=== PATIENT | female | born 1970 | race Caucasian/White ===

== ENCOUNTER → 2016-12-01 | Outpatient (CLI) | payer OTHER ==
[~2016-12-01] MED LIST: ADIPEX-P37.5 MG PO; B-12 100 MCG PO; BACTRIM DS 8001 TAB PO; BIOTIN PO; BUSPAR DIVIDOSE15 MG PO; BUSPAR10 MG PO; CALCIUM 600MG+D1 TAB PO; CEPHALEXIN250 M1 PO; CIPRO 250MG TA250 MG PO; COLACE 100100 MG/CAP PO; CRANBERRY1 CAP PO; DEPO-PROVER150 MG/M1 IM; DESYREL 100MG100 MG PO; EFFEXOR-XR150 MG PO; FASTIN30 MG PO; FLEXERIL 1010 MG/TAB PO; FLEXERIL10 MG PO; FORTAMET500 MG PO; GLUCOPHAGE XR500 M1 PO; GLUCOPHAGE500 MG/TAB PO; HEALTH CARE AME1 SGL PO; JANUMET 500 MG-1 TA1; KLONOPIN 0.5MG0.5 MG PO; LAMICTAL200 MG PO; LANTUS100 U/ML SC; LEVAQUIN 750MG750 M1 PO; LORTAB 5/500 501 TAB PO; MOBIC 7.5MG7.5 MG PO; NO HOME MEDICATIONS; NORCO 325 MG-51 TAB PO; NOVOLOG 100U100 U/M1 SC; ONE DAILY WOMEN1 TAB PO; PHENTERMINE15 MG PO; PRILOSEC 20MG20 MG PO; RESTORIL 1515 MG/CAP PO; TOPAMAX 25MG25 M1 PO; ULTRAM 50MG TAB50 MG PO; VENLAFAXINE225 MG PO; ZOFRAN8 MG PO
== END ==
LOC: BHSO 15:13
DX: F31.81 Bipolar II disorder (principal)

== ENCOUNTER → 2016-12-05 | Outpatient (CLI) | payer OTHER | LOC: BHSO 08:55 | DX: F31.81 Bipolar II disorder (principal) ==

== ENCOUNTER → 2016-12-11 | Outpatient (CLI) | payer BC ==
[~2016-12-11] VITALS: Ht 154.9 cm; Wt 83.5 kg
[2016-12-11 14:47] VITALS: BP 130/70; PULSE 80
[2016-12-11 15:04] VITALS: BP 130/70; PULSE 80
== END ==
LOC: LIGHT 11:26
DX: E11.9 Type 2 diabetes mellitus without complications (principal); F33.8 Other recurrent depressive disorders; E66.09 Other obesity due to excess calories; Z68.34 Body mass index [BMI] 34.0-34.9, adult; F41.8 Other specified anxiety disorders

== ENCOUNTER → 2016-12-19 | Outpatient (CLI) | payer OTHER | LOC: BHSO 08:51 | DX: F31.81 Bipolar II disorder (principal) ==

== ENCOUNTER → 2017-01-02 | Outpatient (CLI) | payer OTHER | LOC: BHSO 09:01 | DX: F31.81 Bipolar II disorder (principal) ==

== ENCOUNTER → 2017-01-15 | Outpatient (CLI) | payer OTHER ==
[~2017-01-15] VITALS: Ht 154.9 cm; Wt 83.0 kg
[2017-01-15 14:59] VITALS: BP 134/79; PULSE 86
[2017-01-15 15:21] VITALS: BP 134/79; PULSE 86
== END ==
LOC: LIGHT 12:52
DX: E11.9 Type 2 diabetes mellitus without complications (principal); F33.8 Other recurrent depressive disorders; E66.09 Other obesity due to excess calories; Z68.34 Body mass index [BMI] 34.0-34.9, adult

== ENCOUNTER → 2017-01-23 | Outpatient (CLI) | payer OTHER | LOC: BHSO 08:57 | DX: F31.81 Bipolar II disorder (principal) ==

== ENCOUNTER → 2017-02-04 | Outpatient (CLI) | payer OTHER | LOC: BHSO 14:58 | DX: F33.1 Major depressive disorder, recurrent, moderate (principal) ==

== ENCOUNTER → 2017-02-06 | Outpatient (CLI) | payer OTHER | LOC: BHSO 09:03 | DX: F31.31 Bipolar disorder, current episode depressed, mild (principal) ==

== ENCOUNTER → 2017-02-20 | Outpatient (CLI) | payer OTHER | LOC: BHSO 08:57 | DX: F31.11 Bipolar disorder, current episode manic without psychotic features, mild (principal) ==

== ENCOUNTER → 2017-03-06 | Outpatient (CLI) | payer OTHER | LOC: BHSO 08:58 | DX: F31.81 Bipolar II disorder (principal) ==

== ENCOUNTER → 2017-04-03 | Outpatient (CLI) | payer OTHER | LOC: BHSO 14:04 | DX: F31.81 Bipolar II disorder (principal) ==

== ENCOUNTER → 2017-04-16 | Outpatient (CLI) | payer OTHER | LOC: BHSO 14:51 | DX: F31.81 Bipolar II disorder (principal) ==

== ENCOUNTER 2017-04-21 11:27 | Emergency (ER) | payer OTHER ==
[~2017-04-21] VITALS: Ht 154.9 cm; Wt 82.7 kg
[~2017-04-21 11:27] MED LIST changes: -CALCIUM 600MG+D1 TAB PO
[2017-04-21 11:35] VITALS: BP 128/90; TEMP 98
[2017-04-21 13:00] VITALS: PULSE 90
== END 2017-04-21 13:01 | disposition home or self-care (01) ==
LOC: COL.ER 11:27
DX: S60.221A Contusion of right hand, initial encounter (principal); F32.9 Major depressive disorder, single episode, unspecified; F41.9 Anxiety disorder, unspecified; E11.9 Type 2 diabetes mellitus without complications; Z79.84 Long term (current) use of oral hypoglycemic drugs; Z79.4 Long term (current) use of insulin; Z87.39 Personal history of other diseases of the musculoskeletal system and connective tissue; Z98.890 Other specified postprocedural states; W22.8XXA Striking against or struck by other objects, initial encounter; Y92.89 Other specified places as the place of occurrence of the external cause

== ENCOUNTER → 2017-05-06 | Outpatient (CLI) | payer OTHER ==
[~2017-05-06] MED LIST changes: +CALCIUM 600MG+D1 TAB PO
== END ==
LOC: BHSO 14:32
DX: F31.81 Bipolar II disorder (principal)

== ENCOUNTER → 2017-05-08 | Outpatient (CLI) | payer OTHER | LOC: BHSO 09:57 | DX: F31.81 Bipolar II disorder (principal) ==

== ENCOUNTER 2017-05-20 13:42 | Outpatient (RCR) | payer OTHER ==
[~2017-05-20 13:42] MED LIST changes: -CALCIUM 600MG+D1 TAB PO; +EFFEXOR 75M75 MG/TAB PO
[2017-05-28] MEDS ORDERED: CALCIUM 600MG+D1 TAB PO (15:26)
[2017-05-28] MEDS ORDERED: TOPAMAX 25MG25 M1 PO (17:32)
== END 2017-08-18 | disposition still patient (30) ==
LOC: WSOH
DX: S60.221A Contusion of right hand, initial encounter (principal); R22.31 Localized swelling, mass and lump, right upper limb; R20.0 Anesthesia of skin; W20.8XXA Other cause of strike by thrown, projected or falling object, initial encounter; Y92.090 Kitchen in other non-institutional residence as the place of occurrence of the external cause; Y99.0 Civilian activity done for income or pay; Z98.84 Bariatric surgery status; Z90.49 Acquired absence of other specified parts of digestive tract

== ENCOUNTER → 2017-05-28 | Outpatient (CLI) | payer OTHER ==
[~2017-05-28] VITALS: Ht 154.9 cm; Wt 87.3 kg
[~2017-05-28] MED LIST changes: +CALCIUM 600MG+D1 TAB PO; -EFFEXOR 75M75 MG/TAB PO
[2017-05-28 15:27] VITALS: BP 133/78; PULSE 82
== END ==
LOC: LIGHT
DX: E11.9 Type 2 diabetes mellitus without complications (principal); F32.9 Major depressive disorder, single episode, unspecified; E66.9 Obesity, unspecified; Z68.36 Body mass index [BMI] 36.0-36.9, adult; Z71.3 Dietary counseling and surveillance; F41.9 Anxiety disorder, unspecified

== ENCOUNTER → 2017-05-29 | Outpatient (CLI) | payer OTHER | LOC: BHSO 09:57 | DX: F31.32 Bipolar disorder, current episode depressed, moderate (principal) ==

== ENCOUNTER → 2017-06-12 | Outpatient (CLI) | payer OTHER | LOC: BHSO 09:51 | DX: F31.81 Bipolar II disorder (principal) ==

== ENCOUNTER → 2017-07-03 | Outpatient (CLI) | payer OTHER | LOC: BHSO 08:59 | DX: F31.81 Bipolar II disorder (principal) ==

== ENCOUNTER → 2017-07-16 | Outpatient (CLI) | payer OTHER ==
[~2017-07-16] VITALS: Ht 154.9 cm; Wt 85.7 kg
[2017-07-16 15:44] VITALS: BP 132/92; PULSE 80
== END ==
LOC: LIGHT 10:39
DX: E11.9 Type 2 diabetes mellitus without complications (principal); F32.9 Major depressive disorder, single episode, unspecified; E66.9 Obesity, unspecified; Z68.35 Body mass index [BMI] 35.0-35.9, adult; Z98.84 Bariatric surgery status; Z90.3 Acquired absence of stomach [part of]

== ENCOUNTER → 2017-07-17 | Outpatient (CLI) | payer OTHER | LOC: BHSO 08:55 | DX: F31.31 Bipolar disorder, current episode depressed, mild (principal) ==

== ENCOUNTER → 2017-07-31 | Outpatient (CLI) | payer OTHER | LOC: BHSO 09:05 | DX: F31.31 Bipolar disorder, current episode depressed, mild (principal) ==

== ENCOUNTER → 2017-08-04 | Outpatient (CLI) | payer OTHER | LOC: BHSO 14:38 | DX: F41.0 Panic disorder [episodic paroxysmal anxiety] (principal) ==

== ENCOUNTER → 2017-08-14 | Outpatient (CLI) | payer OTHER | LOC: BHSO 10:02 | DX: F31.31 Bipolar disorder, current episode depressed, mild (principal) ==

== ENCOUNTER → 2017-08-27 | Outpatient (CLI) | payer OTHER ==
[~2017-08-27] VITALS: Ht 154.9 cm; Wt 86.6 kg
[~2017-08-27] MED LIST changes: +EFFEXOR 75M75 MG/TAB PO
[2017-08-27 14:50] VITALS: BP 122/70; PULSE 100
== END ==
LOC: LIGHT 11:33
DX: E11.9 Type 2 diabetes mellitus without complications (principal); F32.9 Major depressive disorder, single episode, unspecified; E66.9 Obesity, unspecified; Z68.36 Body mass index [BMI] 36.0-36.9, adult; Z71.3 Dietary counseling and surveillance; F41.9 Anxiety disorder, unspecified

== ENCOUNTER → 2017-08-28 | Outpatient (CLI) | payer OTHER | LOC: BHSO 08:57 | DX: F31.81 Bipolar II disorder (principal) ==

== ENCOUNTER → 2017-09-11 | Outpatient (CLI) | payer OTHER | LOC: BHSO 09:00 | DX: F31.81 Bipolar II disorder (principal) ==

== ENCOUNTER → 2017-09-24 | Outpatient (CLI) | payer OTHER ==
[~2017-09-24] VITALS: Ht 154.9 cm; Wt 88.9 kg
[~2017-09-24] MED LIST changes: +CONTRAVE1 TER PO
[2017-09-24 14:47] VITALS: BP 140/80; PULSE 104
== END ==
LOC: LIGHT 11:11
DX: E11.9 Type 2 diabetes mellitus without complications (principal); F32.9 Major depressive disorder, single episode, unspecified; E66.9 Obesity, unspecified; Z68.37 Body mass index [BMI] 37.0-37.9, adult; Z71.3 Dietary counseling and surveillance; F41.9 Anxiety disorder, unspecified

== ENCOUNTER → 2017-10-01 | Outpatient (CLI) | payer OTHER | LOC: BHSO 14:38 | DX: F41.1 Generalized anxiety disorder (principal) ==

== ENCOUNTER → 2017-10-05 | Outpatient (CLI) | payer OTHER ==
[~2017-10-05] VITALS: Ht 154.9 cm; Wt 89.4 kg
[2017-10-05 14:49] VITALS: BP 136/84; PULSE 100
== END ==
LOC: LIGHT 08:22
DX: E11.9 Type 2 diabetes mellitus without complications (principal); F32.9 Major depressive disorder, single episode, unspecified; E66.9 Obesity, unspecified; Z68.37 Body mass index [BMI] 37.0-37.9, adult; Z71.3 Dietary counseling and surveillance; F41.9 Anxiety disorder, unspecified

== ENCOUNTER → 2017-10-09 | Outpatient (CLI) | payer OTHER | LOC: BHSO 08:42 | DX: F31.81 Bipolar II disorder (principal) ==

== ENCOUNTER → 2017-10-22 | Outpatient (CLI) | payer OTHER ==
[~2017-10-22] VITALS: Ht 154.9 cm; Wt 87.8 kg
[2017-10-22 14:46] VITALS: BP 120/80; PULSE 80
== END ==
LOC: LIGHT 11:10
DX: E11.9 Type 2 diabetes mellitus without complications (principal); F32.9 Major depressive disorder, single episode, unspecified; E66.9 Obesity, unspecified; Z68.36 Body mass index [BMI] 36.0-36.9, adult; Z71.3 Dietary counseling and surveillance; F41.9 Anxiety disorder, unspecified

== ENCOUNTER → 2017-10-23 | Outpatient (CLI) | payer OTHER | LOC: BHSO 08:50 | DX: F31.81 Bipolar II disorder (principal) ==

== ENCOUNTER → 2017-11-19 | Outpatient (CLI) | payer OTHER ==
[~2017-11-19] VITALS: Ht 154.9 cm; Wt 86.0 kg
[2017-11-19 14:42] VITALS: BP 124/76; PULSE 100
== END ==
LOC: LIGHT 12:35
DX: E11.9 Type 2 diabetes mellitus without complications (principal); F32.9 Major depressive disorder, single episode, unspecified; E66.9 Obesity, unspecified; Z68.35 Body mass index [BMI] 35.0-35.9, adult; Z71.3 Dietary counseling and surveillance; F41.9 Anxiety disorder, unspecified
CPT/HCPCS: G0463

== ENCOUNTER → 2017-12-04 | Outpatient (CLI) | payer OTHER | LOC: BHSO 09:54 | DX: F31.81 Bipolar II disorder (principal) ==

== ENCOUNTER → 2017-12-24 | Outpatient (CLI) | payer OTHER ==
[~2017-12-24] VITALS: Ht 154.9 cm; Wt 88.7 kg
[2017-12-24 15:04] VITALS: BP 140/84; PULSE 84
== END ==
LOC: LIGHT 09:13
DX: E11.9 Type 2 diabetes mellitus without complications (principal); F32.9 Major depressive disorder, single episode, unspecified; E66.9 Obesity, unspecified; Z68.36 Body mass index [BMI] 36.0-36.9, adult; Z71.3 Dietary counseling and surveillance; F41.9 Anxiety disorder, unspecified
CPT/HCPCS: G0463

== ENCOUNTER → 2018-01-08 | Outpatient (CLI) | payer OTHER | LOC: BHSO 08:55 | DX: F31.81 Bipolar II disorder (principal) ==

== ENCOUNTER → 2018-01-21 | Outpatient (CLI) | payer OTHER ==
[~2018-01-21] VITALS: Ht 154.9 cm; Wt 89.4 kg
[~2018-01-21] MED LIST changes: +LIPITOR20 MG PO
[2018-01-21 14:56] VITALS: BP 140/92; PULSE 68
== END ==
LOC: LIGHT 09:49
DX: E11.9 Type 2 diabetes mellitus without complications (principal); F32.9 Major depressive disorder, single episode, unspecified; E66.9 Obesity, unspecified; Z68.37 Body mass index [BMI] 37.0-37.9, adult; Z71.3 Dietary counseling and surveillance; F41.9 Anxiety disorder, unspecified
CPT/HCPCS: G0463

== ENCOUNTER → 2018-02-19 | Outpatient (CLI) | payer OTHER | LOC: BHSO 08:51 | DX: F31.81 Bipolar II disorder (principal) ==

== ENCOUNTER → 2018-02-25 | Outpatient (CLI) | payer OTHER ==
[~2018-02-25] VITALS: Ht 154.9 cm; Wt 89.1 kg
[2018-02-25 14:50] VITALS: BP 134/94; PULSE 80
== END ==
LOC: LIGHT 09:54
DX: E11.9 Type 2 diabetes mellitus without complications (principal); F32.9 Major depressive disorder, single episode, unspecified; E66.9 Obesity, unspecified; Z68.37 Body mass index [BMI] 37.0-37.9, adult; Z71.3 Dietary counseling and surveillance; F41.9 Anxiety disorder, unspecified
CPT/HCPCS: G0463

== ENCOUNTER → 2018-03-12 | Outpatient (CLI) | payer OTHER | LOC: BHSO 09:00 | DX: F31.81 Bipolar II disorder (principal) ==

== ENCOUNTER → 2018-04-02 | Outpatient (CLI) | payer OTHER | LOC: BHSO 08:59 | DX: F31.11 Bipolar disorder, current episode manic without psychotic features, mild (principal) ==

== ENCOUNTER → 2018-04-08 | Outpatient (CLI) | payer OTHER ==
[~2018-04-08] VITALS: Ht 154.9 cm; Wt 86.2 kg
[~2018-04-08] MED LIST changes: -GLUCOPHAGE XR500 M1 PO
[2018-04-08 15:06] VITALS: BP 136/82; PULSE 80
== END ==
LOC: LIGHT 14:41
DX: E11.9 Type 2 diabetes mellitus without complications (principal); F32.9 Major depressive disorder, single episode, unspecified; E66.9 Obesity, unspecified; Z68.35 Body mass index [BMI] 35.0-35.9, adult; Z71.3 Dietary counseling and surveillance; F41.9 Anxiety disorder, unspecified
CPT/HCPCS: G0463

== ENCOUNTER → 2018-04-12 | Outpatient (CLI) | payer OTHER | LOC: BHSO 14:37 | DX: F33.41 Major depressive disorder, recurrent, in partial remission (principal) | CPT/HCPCS: G0463 ==

== ENCOUNTER → 2018-05-20 | Outpatient (CLI) | payer OTHER ==
[~2018-05-20] VITALS: Ht 154.9 cm; Wt 85.5 kg
[2018-05-20 14:49] VITALS: BP 150/94; PULSE 92
== END ==
LOC: LIGHT 14:22
DX: E11.9 Type 2 diabetes mellitus without complications (principal); F32.9 Major depressive disorder, single episode, unspecified; E66.9 Obesity, unspecified; Z68.35 Body mass index [BMI] 35.0-35.9, adult; Z71.3 Dietary counseling and surveillance; F41.9 Anxiety disorder, unspecified
CPT/HCPCS: G0463

== ENCOUNTER → 2018-06-24 | Outpatient (CLI) | payer OTHER ==
[~2018-06-24] VITALS: Ht 154.9 cm; Wt 86.4 kg
[2018-06-24 14:48] VITALS: BP 140/90; PULSE 92
== END ==
LOC: LIGHT 13:29
DX: E11.9 Type 2 diabetes mellitus without complications (principal); F32.9 Major depressive disorder, single episode, unspecified; F41.9 Anxiety disorder, unspecified; E66.9 Obesity, unspecified; Z68.36 Body mass index [BMI] 36.0-36.9, adult; Z71.3 Dietary counseling and surveillance
CPT/HCPCS: G0463

== ENCOUNTER → 2018-07-22 | Outpatient (CLI) | payer OTHER ==
[~2018-07-22] VITALS: Ht 154.9 cm; Wt 87.1 kg
[2018-07-22 14:36] VITALS: BP 132/84; PULSE 80
== END ==
LOC: LIGHT 08:18
DX: E11.9 Type 2 diabetes mellitus without complications (principal); F32.9 Major depressive disorder, single episode, unspecified; F41.9 Anxiety disorder, unspecified; E66.9 Obesity, unspecified; Z68.36 Body mass index [BMI] 36.0-36.9, adult; Z71.3 Dietary counseling and surveillance
CPT/HCPCS: G0463

== ENCOUNTER → 2018-07-23 | Outpatient (CLI) | payer OTHER | LOC: BHSO 14:51 | DX: F31.81 Bipolar II disorder (principal) ==

== ENCOUNTER → 2018-08-17 | Outpatient (CLI) | payer OTHER | LOC: BHSO 13:52 | DX: F31.81 Bipolar II disorder (principal) ==

== ENCOUNTER → 2018-09-02 | Outpatient (CLI) | payer OTHER ==
[~2018-09-02] VITALS: Ht 154.9 cm; Wt 86.6 kg
[2018-09-02 14:54] VITALS: BP 126/80; PULSE 88
== END ==
LOC: LIGHT 11:34
DX: E11.9 Type 2 diabetes mellitus without complications (principal); F32.9 Major depressive disorder, single episode, unspecified; F41.1 Generalized anxiety disorder; E66.9 Obesity, unspecified; Z68.36 Body mass index [BMI] 36.0-36.9, adult; Z71.3 Dietary counseling and surveillance
CPT/HCPCS: G0463

== ENCOUNTER → 2018-09-03 | Outpatient (CLI) | payer OTHER | LOC: BHSO 12:55 | DX: F31.81 Bipolar II disorder (principal) ==

== ENCOUNTER → 2018-09-24 | Outpatient (CLI) | payer OTHER | LOC: BHSO 08:49 | DX: F31.11 Bipolar disorder, current episode manic without psychotic features, mild (principal) ==

== ENCOUNTER → 2018-10-04 | Outpatient (CLI) | payer OTHER | LOC: BHSO 14:38 | DX: F41.1 Generalized anxiety disorder (principal) | CPT/HCPCS: G0463 ==

== ENCOUNTER → 2018-10-08 | Outpatient (CLI) | payer OTHER | LOC: BHSO 09:56 | DX: F31.11 Bipolar disorder, current episode manic without psychotic features, mild (principal) ==

== ENCOUNTER → 2018-10-29 | Outpatient (CLI) | payer OTHER ==
[~2018-10-29] MED LIST changes: +DESVENLAFAXINE50 MG PO
== END ==
LOC: BHSO 09:00
DX: F31.11 Bipolar disorder, current episode manic without psychotic features, mild (principal)

== ENCOUNTER → 2018-11-12 | Outpatient (CLI) | payer OTHER | LOC: BHSO 08:40 | DX: F31.11 Bipolar disorder, current episode manic without psychotic features, mild (principal) ==

== ENCOUNTER → 2018-11-26 | Outpatient (CLI) | payer OTHER | LOC: BHSO 15:03 | DX: F31.11 Bipolar disorder, current episode manic without psychotic features, mild (principal) ==

== ENCOUNTER → 2018-12-10 | Outpatient (CLI) | payer OTHER | LOC: BHSO 13:58 | DX: F31.81 Bipolar II disorder (principal) ==

== ENCOUNTER → 2018-12-17 | Outpatient (CLI) | payer OTHER | LOC: BHSO 08:17 | DX: F33.1 Major depressive disorder, recurrent, moderate (principal) | CPT/HCPCS: G0463 ==

== ENCOUNTER → 2018-12-23 | Outpatient (CLI) | payer OTHER ==
[~2018-12-23] VITALS: Ht 154.9 cm; Wt 85.0 kg
[2018-12-23 15:40] VITALS: BP 130/70; PULSE 76
== END ==
LOC: LIGHT 11-18 10:28
DX: E11.9 Type 2 diabetes mellitus without complications (principal); F32.9 Major depressive disorder, single episode, unspecified; F41.9 Anxiety disorder, unspecified; Z68.35 Body mass index [BMI] 35.0-35.9, adult; E66.9 Obesity, unspecified; Z71.3 Dietary counseling and surveillance
CPT/HCPCS: G0463

== ENCOUNTER → 2018-12-31 | Outpatient (CLI) | payer OTHER | LOC: BHSO 14:54 | DX: F31.81 Bipolar II disorder (principal) ==

== ENCOUNTER → 2019-01-14 | Outpatient (CLI) | payer OTHER | LOC: BHSO 14:52 | DX: F31.81 Bipolar II disorder (principal) ==

== ENCOUNTER → 2019-01-21 | Outpatient (CLI) | payer OTHER | LOC: BHSO 12:16 | DX: F31.81 Bipolar II disorder (principal) | CPT/HCPCS: G0463 ==

== ENCOUNTER → 2019-02-18 | Outpatient (CLI) | payer OTHER | LOC: BHSO 08:48 | DX: F31.81 Bipolar II disorder (principal) ==

== ENCOUNTER → 2019-02-25 | Outpatient (CLI) | payer OTHER | LOC: BHSO 15:14 | DX: F31.11 Bipolar disorder, current episode manic without psychotic features, mild (principal) ==

== ENCOUNTER → 2019-03-11 | Outpatient (CLI) | payer OTHER | LOC: BHSO 08:59 | DX: F31.11 Bipolar disorder, current episode manic without psychotic features, mild (principal) ==

== ENCOUNTER → 2019-03-17 | Outpatient (CLI) | payer OTHER ==
[~2019-03-17] VITALS: Ht 154.9 cm; Wt 82.6 kg
[~2019-03-17] MED LIST changes: +LAMICTAL 100MG100 MG PO
[2019-03-17 15:50] VITALS: BP 124/86; PULSE 60
== END ==
LOC: LIGHT 01-27 11:14
DX: E11.65 Type 2 diabetes mellitus with hyperglycemia (principal); F32.9 Major depressive disorder, single episode, unspecified; F41.1 Generalized anxiety disorder; E66.9 Obesity, unspecified; Z68.34 Body mass index [BMI] 34.0-34.9, adult; Z71.3 Dietary counseling and surveillance
CPT/HCPCS: G0463

== ENCOUNTER → 2019-03-25 | Outpatient (CLI) | payer OTHER | LOC: BHSO 08:16 | DX: F31.81 Bipolar II disorder (principal) | CPT/HCPCS: G0463 ==

== ENCOUNTER → 2019-04-01 | Outpatient (CLI) | payer OTHER | LOC: BHSO 09:02 | DX: F31.81 Bipolar II disorder (principal) ==

== ENCOUNTER → 2019-04-15 | Outpatient (CLI) | payer OTHER | LOC: BHSO 08:56 | DX: F31.81 Bipolar II disorder (principal) ==

== ENCOUNTER → 2019-04-29 | Outpatient (CLI) | payer OTHER | LOC: BHSO 08:58 | DX: F31.11 Bipolar disorder, current episode manic without psychotic features, mild (principal) ==

== ENCOUNTER → 2019-05-05 | Outpatient (CLI) | payer OTHER ==
[~2019-05-05] VITALS: Ht 154.9 cm; Wt 79.8 kg
[2019-05-05 15:37] VITALS: BP 120/84; PULSE 72
== END ==
LOC: LIGHT 14:48
DX: E11.9 Type 2 diabetes mellitus without complications (principal); F32.9 Major depressive disorder, single episode, unspecified; F41.1 Generalized anxiety disorder; E66.9 Obesity, unspecified; Z68.33 Body mass index [BMI] 33.0-33.9, adult; Z71.3 Dietary counseling and surveillance
CPT/HCPCS: G0463

== ENCOUNTER → 2019-05-13 | Outpatient (CLI) | payer OTHER | LOC: BHSO 08:52 | DX: F31.11 Bipolar disorder, current episode manic without psychotic features, mild (principal) ==

== ENCOUNTER → 2019-06-03 | Outpatient (CLI) | payer OTHER | LOC: BHSO 08:55 | DX: F31.11 Bipolar disorder, current episode manic without psychotic features, mild (principal) ==

== ENCOUNTER → 2019-06-16 | Outpatient (CLI) | payer OTHER ==
[~2019-06-16] VITALS: Ht 154.9 cm; Wt 78.7 kg
[2019-06-16 15:37] VITALS: BP 116/80; PULSE 92
== END ==
LOC: LIGHT 14:15
DX: E11.65 Type 2 diabetes mellitus with hyperglycemia (principal); F32.9 Major depressive disorder, single episode, unspecified; F41.1 Generalized anxiety disorder; E66.9 Obesity, unspecified; Z68.32 Body mass index [BMI] 32.0-32.9, adult; Z71.3 Dietary counseling and surveillance
CPT/HCPCS: G0463

== ENCOUNTER → 2019-06-17 | Outpatient (CLI) | payer OTHER | LOC: BHSO 08:22 | DX: F31.81 Bipolar II disorder (principal) | CPT/HCPCS: G0463 ==

== ENCOUNTER → 2019-07-01 | Outpatient (CLI) | payer OTHER | LOC: BHSO 08:57 | DX: F31.81 Bipolar II disorder (principal) ==

== ENCOUNTER → 2019-07-19 | Outpatient (CLI) | payer OTHER | LOC: BHSO 15:40 | DX: F31.81 Bipolar II disorder (principal) | CPT/HCPCS: G0463 ==

== ENCOUNTER → 2019-07-28 | Outpatient (CLI) | payer OTHER ==
[~2019-07-28] VITALS: Ht 154.9 cm; Wt 78.7 kg
[~2019-07-28] MED LIST changes: +CYMBALTA 60MG60 MG PO
[2019-07-28 16:10] VITALS: BP 132/80; PULSE 72
== END ==
LOC: LIGHT 11:53
DX: E11.9 Type 2 diabetes mellitus without complications (principal); F32.9 Major depressive disorder, single episode, unspecified; F41.1 Generalized anxiety disorder; E66.9 Obesity, unspecified; Z68.32 Body mass index [BMI] 32.0-32.9, adult; Z71.3 Dietary counseling and surveillance
CPT/HCPCS: G0463

== ENCOUNTER → 2019-08-04 | Outpatient (CLI) | payer OTHER | LOC: BHSO 15:07 | DX: F41.9 Anxiety disorder, unspecified (principal) ==

== ENCOUNTER → 2019-08-15 | Outpatient (CLI) | payer OTHER | LOC: BHSO 15:06 | DX: F31.81 Bipolar II disorder (principal) ==

== ENCOUNTER → 2019-09-02 | Outpatient (CLI) | payer OTHER | LOC: BHSO 15:05 | DX: F31.81 Bipolar II disorder (principal) ==

== ENCOUNTER → 2019-09-16 | Outpatient (CLI) | payer OTHER | LOC: BHSO 15:00 | DX: F31.11 Bipolar disorder, current episode manic without psychotic features, mild (principal) ==

== ENCOUNTER → 2019-09-30 | Outpatient (CLI) | payer OTHER | LOC: BHSO 14:58 | DX: F31.81 Bipolar II disorder (principal) ==

== ENCOUNTER → 2019-10-06 | Outpatient (CLI) | payer OTHER ==
[~2019-10-06] VITALS: Ht 154.9 cm; Wt 80.7 kg
[2019-10-06 16:48] VITALS: BP 144/92; PULSE 92
== END ==
LOC: LIGHT 09-01 13:37
DX: E11.65 Type 2 diabetes mellitus with hyperglycemia (principal); F32.9 Major depressive disorder, single episode, unspecified; F41.1 Generalized anxiety disorder; E66.09 Other obesity due to excess calories; Z68.33 Body mass index [BMI] 33.0-33.9, adult; Z71.3 Dietary counseling and surveillance
CPT/HCPCS: G0463

== ENCOUNTER → 2019-11-10 | Outpatient (CLI) | payer OTHER ==
[~2019-11-10] MED LIST changes: +GLUCOPHAGE1000 MG PO; +SEROQUEL50 MG PO
== END ==
LOC: BHSO 15:41
DX: F31.81 Bipolar II disorder (principal)
CPT/HCPCS: G0463

== ENCOUNTER → 2019-12-08 | Outpatient (CLI) | payer OTHER | LOC: BHSO 16:03 | DX: F31.81 Bipolar II disorder (principal) ==

== ENCOUNTER → 2019-12-29 | Outpatient (CLI) | payer OTHER ==
[~2019-12-29] VITALS: Ht 154.9 cm; Wt 77.1 kg
[2019-12-29 14:48] VITALS: BP 140/90; PULSE 84
== END ==
LOC: LIGHT 14:38
DX: Z68.32 Body mass index [BMI] 32.0-32.9, adult (principal); E11.9 Type 2 diabetes mellitus without complications; F32.9 Major depressive disorder, single episode, unspecified
CPT/HCPCS: G0463

== ENCOUNTER → 2020-01-06 | Outpatient (CLI) | payer OTHER | LOC: BHSO 14:55 | DX: F31.81 Bipolar II disorder (principal) ==

== ENCOUNTER → 2020-01-12 | Outpatient (CLI) | payer OTHER | LOC: BHSO 15:40 | DX: F31.81 Bipolar II disorder (principal) | CPT/HCPCS: G0463 ==

== ENCOUNTER → 2020-01-20 | Outpatient (CLI) | payer OTHER | LOC: BHSO 14:57 | DX: F31.11 Bipolar disorder, current episode manic without psychotic features, mild (principal) ==

== ENCOUNTER → 2020-02-03 | Outpatient (CLI) | payer OTHER | LOC: BHSO 15:00 | DX: F31.81 Bipolar II disorder (principal) ==

== ENCOUNTER → 2020-03-02 | Outpatient (CLI) | payer OTHER | LOC: BHSO 14:53 | DX: F31.81 Bipolar II disorder (principal) ==

== ENCOUNTER → 2020-03-16 | Outpatient (CLI) | payer OTHER | LOC: BHSO 08:47 | DX: F31.81 Bipolar II disorder (principal) ==

== ENCOUNTER → 2020-03-30 | Outpatient (CLI) | payer OTHER | LOC: BHSO 13:50 | DX: F31.81 Bipolar II disorder (principal) ==

== ENCOUNTER → 2020-04-12 | Outpatient (CLI) | payer OTHER | LOC: BHSO 14:49 | DX: F41.1 Generalized anxiety disorder (principal) | CPT/HCPCS: G0463 ==

== ENCOUNTER → 2020-04-13 | Outpatient (CLI) | payer OTHER | LOC: BHSO 08:52 | DX: F31.81 Bipolar II disorder (principal) ==

== ENCOUNTER → 2020-05-10 | Outpatient (CLI) | payer OTHER | LOC: BHSO 14:53 | DX: F31.81 Bipolar II disorder (principal) ==

== ENCOUNTER → 2020-05-17 | Outpatient (CLI) | payer OTHER ==
[~2020-05-17] VITALS: Ht 154.9 cm; Wt 74.8 kg
[~2020-05-17] MED LIST changes: +TOPAMAX50 MG PO
[2020-05-17 15:01] VITALS: BP 130/76; PULSE 72
== END ==
LOC: LIGHT 02-09 14:33
DX: E66.8 Other obesity (principal); Z68.31 Body mass index [BMI] 31.0-31.9, adult; E11.9 Type 2 diabetes mellitus without complications
CPT/HCPCS: G0463

== ENCOUNTER 2020-05-27 20:45 | Emergency (ER) | payer OTHER ==
[~2020-05-27] VITALS: Ht 154.9 cm; Wt 75.0 kg
[2020-05-27 21:57] VITALS: BP 134/70; PULSE 68; TEMP 97
== END 2020-05-27 21:57 | disposition home or self-care (01) ==
LOC: COL.ER 20:45
DX: S61.215A Laceration without foreign body of left ring finger without damage to nail, initial encounter (principal); F32.9 Major depressive disorder, single episode, unspecified; E11.9 Type 2 diabetes mellitus without complications; Z88.6 Allergy status to analgesic agent; Z79.84 Long term (current) use of oral hypoglycemic drugs; Z98.84 Bariatric surgery status; Z90.49 Acquired absence of other specified parts of digestive tract; W26.0XXA Contact with knife, initial encounter

== ENCOUNTER → 2020-05-31 | Outpatient (CLI) | payer OTHER | LOC: BHSO 15:57 | DX: F31.81 Bipolar II disorder (principal) ==

== ENCOUNTER → 2020-06-14 | Outpatient (CLI) | payer OTHER | LOC: BHSO 14:54 | DX: F31.81 Bipolar II disorder (principal) ==

== ENCOUNTER → 2020-06-22 | Outpatient (CLI) | payer OTHER | LOC: BHSO 15:36 | DX: F31.81 Bipolar II disorder (principal) ==

== ENCOUNTER → 2020-06-28 | Outpatient (CLI) | payer OTHER | LOC: BHSO 15:03 | DX: F31.11 Bipolar disorder, current episode manic without psychotic features, mild (principal) ==

== ENCOUNTER → 2020-07-05 | Outpatient (CLI) | payer OTHER ==
[~2020-07-05] VITALS: Ht 154.9 cm; Wt 72.6 kg
[2020-07-05 15:34] VITALS: BP 118/76; PULSE 77
== END ==
LOC: LIGHT 11:36
DX: E66.8 Other obesity (principal); Z68.30 Body mass index [BMI] 30.0-30.9, adult; E11.9 Type 2 diabetes mellitus without complications; F32.9 Major depressive disorder, single episode, unspecified
CPT/HCPCS: G0463

== ENCOUNTER → 2020-07-12 | Outpatient (CLI) | payer OTHER | LOC: BHSO 15:53 | DX: F31.81 Bipolar II disorder (principal) ==

== ENCOUNTER → 2020-07-26 | Outpatient (CLI) | payer OTHER ==
[~2020-07-26] MED LIST changes: +OMNICEF 300MG300 MG PO; +ZOFRAN ODT4 MG PO
== END ==
LOC: BHSO 15:55
DX: F31.81 Bipolar II disorder (principal)

== ENCOUNTER 2020-07-31 09:39 | Emergency (ER) | payer OTHER ==
[~2020-07-31] VITALS: Ht 154.9 cm; Wt 72.7 kg
[~2020-07-31 09:39] MED LIST changes: -OMNICEF 300MG300 MG PO; -ZOFRAN ODT4 MG PO
[2020-07-31 09:51] VITALS: TEMP 97.4
[2020-07-31 10:22] LABS: BASO # 0.1 (0.0-0.2); BASO % 0.4 % (0.0-2.0); EOS # 0.1 (0.0-0.7); EOS % 1.1 % (0-4.0); GRAN # 9.5 (1.4-6.5); GRAN % 82.7 % (42.2-75.2); HEMOGLOBIN 11.1 g/dl (12.5-16.0); LYMPH # 1.2 (1.2-3.4); LYMPH % 10.1 % (20.0-51.0); MEAN CELL VOLUME 82 fl (80.0-100.0); MEAN CORPUSCULAR HEMOGLOBIN 26 pg (27.0-31.0); MEAN CORPUSCULAR HGB CONC 32 g/dl (33.0-37.0); MEAN PLATELET VOLUME 10.2 fl (7.4-10.4); MONO # 0.6 (0.1-0.6); MONO % 5.4 % (1.7-9.3); PLATELET COUNT 217 K/mm3 (130-400); RED BLOOD COUNT 4.31 M/mm3 (4.10-5.30); REDCELL DISTRIBUTION WIDTH-CV 14.8 % (11.5-14.5)
[2020-07-31 10:26] LABS: HEMATOCRIT 35.2 % (37.0-47.0)
[2020-07-31 10:36] LABS: ALANINE AMINOTRANSFERASE 18 U/L (4-34); ALBUMIN 4.2 gm/dL (3.5-5.0); ALKALINE PHOSPHATASE 87 U/L (50-136); ANION GAP 8 mmol/L (7-16); AST,SGOT 27 U/L (15-37); BILIRUBIN,TOTAL 0.4 mg/dL (0.0-1.0); BLOOD UREA NITROGEN 18 mg/dL (7-17); CALCIUM 9.8 mg/dL (8.4-10.2); CARBON DIOXIDE 25 mmol/L (22-30); CHLORIDE 104 mmol/L (98-107); CREATININE, serum 0.94 (0.52-1.25); GLUCOSE 143 mg/dL (74-106); POTASSIUM 3.8 mmol/L (3.4-5.0); SODIUM 137 mmol/L (137-145); TOTAL PROTEIN 7.1 gm/dL (6.4-8.2)
[2020-07-31 10:38] LABS: C-REACTIVE PROTEIN < 0.5 mg/dL (0.0-0.9)
[2020-07-31 11:31] LABS: COLLECTION METHOD CLEAN CATCH
[2020-07-31 12:06] LABS: MUCOUS Present /lpf; PH 6 (5-8); SQUAMOUS EPITHELIAL 0-2 /hpf; URINE APPEARANCE Hazy; URINE BACTERIA Moderate /hpf; URINE BILIRUBIN Negative (NEGATIVE); URINE BLOOD 3+ (NEGATIVE); URINE COLOR Yellow; URINE GLUCOSE Negative (NEGATIVE); URINE KETONE Negative (NEGATIVE); URINE LEUKOCYTE ESTERASE 1+ (NEGATIVE); URINE NITRATE Positive (NEGATIVE); URINE PROTEIN(semi-quant) 1+ (NEGATIVE); URINE RBC >50 /hpf; URINE UROBILINOGEN Negative (NEGATIVE)
[2020-07-31] MEDS ORDERED: OMNICEF 300MG300 MG PO (13:36)
[2020-07-31] MEDS ORDERED: NORCO 325 MG-51 TAB PO (13:36)
[2020-07-31] MEDS ORDERED: ZOFRAN ODT4 MG PO (13:36)
[2020-07-31 13:54] VITALS: BP 122/79; PULSE 85
== END 2020-07-31 13:56 | disposition home or self-care (01) ==
LOC: COL.ER 09:39
PROVIDERS: Physician Assistant
DX: N20.2 Calculus of kidney with calculus of ureter (principal); N12 Tubulo-interstitial nephritis, not specified as acute or chronic; E11.9 Type 2 diabetes mellitus without complications; F41.9 Anxiety disorder, unspecified; Z88.5 Allergy status to narcotic agent; Z90.49 Acquired absence of other specified parts of digestive tract; Z79.84 Long term (current) use of oral hypoglycemic drugs
CPT/HCPCS: J0696; J1885; J2270; J2405; J7030; Q9967

== ENCOUNTER → 2020-08-13 | Outpatient (CLI) | payer OTHER ==
[~2020-08-13] MED LIST changes: +OMNICEF 300MG300 MG PO; +ZOFRAN ODT4 MG PO
== END ==
LOC: BHSO 14:54
DX: F31.81 Bipolar II disorder (principal)

== ENCOUNTER → 2020-08-17 | Outpatient (CLI) | payer OTHER | LOC: BHSO 15:37 | DX: F31.81 Bipolar II disorder (principal) | CPT/HCPCS: G0463 ==

== ENCOUNTER 2020-08-20 16:37 | Emergency (ER) | payer OTHER ==
[~2020-08-20] VITALS: Ht 154.9 cm; Wt 72.3 kg
[2020-08-20 16:45] VITALS: BP 143/89; TEMP 98.6
[2020-08-20 17:46] VITALS: PULSE 81
== END 2020-08-20 17:47 | disposition home or self-care (01) ==
LOC: COL.ER 16:37
DX: S61.012A Laceration without foreign body of left thumb without damage to nail, initial encounter (principal); E11.9 Type 2 diabetes mellitus without complications; Z79.84 Long term (current) use of oral hypoglycemic drugs; W26.0XXA Contact with knife, initial encounter; Y92.009 Unspecified place in unspecified non-institutional (private) residence as the place of occurrence of the external cause

== ENCOUNTER → 2020-08-23 | Outpatient (CLI) | payer OTHER | LOC: BHSO 15:52 | DX: F31.81 Bipolar II disorder (principal) ==

== ENCOUNTER → 2020-09-05 | Outpatient (CLI) | payer OTHER ==
[~2020-09-05] MED LIST changes: +LAMICTAL 25MG T25 MG PO; +SEROQUEL 1100 MG/TAB PO; -SEROQUEL50 MG PO
== END ==
LOC: BHSO 15:57
DX: F31.11 Bipolar disorder, current episode manic without psychotic features, mild (principal)

== ENCOUNTER → 2020-09-06 | Outpatient (CLI) | payer OTHER ==
[~2020-09-06] VITALS: Ht 154.9 cm; Wt 71.4 kg
[2020-09-06 15:34] VITALS: BP 150/86; PULSE 80
== END ==
LOC: LIGHT 14:44
DX: E66.8 Other obesity (principal); Z68.29 Body mass index [BMI] 29.0-29.9, adult; Z98.84 Bariatric surgery status; E11.9 Type 2 diabetes mellitus without complications
CPT/HCPCS: G0463

== ENCOUNTER → 2020-09-27 | Outpatient (CLI) | payer OTHER | LOC: BHSO 15:59 | DX: F31.11 Bipolar disorder, current episode manic without psychotic features, mild (principal) ==